=== PATIENT | male | born 1965 | race Caucasian/White ===

== ENCOUNTER 2017-01-01 12:12 | Emergency (ER) | payer OTHER | END 2017-01-01 14:45 | disposition home or self-care (01) | LOC: ER 12:12 | DX: N28.89 Other specified disorders of kidney and ureter (principal); R16.0 Hepatomegaly, not elsewhere classified; R10.11 Right upper quadrant pain; R10.31 Right lower quadrant pain; R11.0 Nausea; I10 Essential (primary) hypertension; J44.9 Chronic obstructive pulmonary disease, unspecified; Z79.899 Other long term (current) drug therapy; Z79.82 Long term (current) use of aspirin ==